=== PATIENT | female | born 1980 | race American Indian/Alaskan Native ===

== ENCOUNTER 2017-07-26 09:01 | Outpatient (CLI) | payer OTHER ==
--- NOTE | 2017-07-26 10:11 | Ultrasound Report ---
Pelvic ultrasound: Fibroid, dysmenorrhea. Transabdominal and endovaginal imaging demonstrates an anteverted uterus measuring 6.6 x 8.9 x 15.2 cm. In the central uterus there is a slightly echogenic and heterogeneous mass measuring 6.8 cm in maximum dimension. The mass is posterior to the endometrium and displacing the endometrium superiorly. The endometrium has a thickness of 11.6 and unremarkable otherwise. The left ovary measures 4.5 cm containing a partially cystic structure measuring 3.1 cm. The right ovary measures 5.9 cm with an eccentric 3.3 cm cyst and a more complex questionably solid mass measuring 3.4 cm. No free fluid identified. Impressions: 1. Large posterior uterine fibroid which is suspicious for being submucous in location. 2. Bilaterally enlarged ovaries with multiple cystic masses.
== END 2017-07-26 09:02 | disposition home or self-care (01) ==
LOC: US 09:01
PROVIDERS: ATTEND Internal Medicine
DX: D25.9 Leiomyoma of uterus, unspecified (principal); N83.201 Unspecified ovarian cyst, right side; N83.202 Unspecified ovarian cyst, left side
CPT/HCPCS: 76830; 76856

== ENCOUNTER 2017-09-16 12:05 | Outpatient (CLI) | payer OTHER ==
--- NOTE | 2017-09-16 12:40 | XRay Report ---
ROUTINE CHEST, TWO VIEWS: HISTORY: Non-specific reaction to TB skin test. The trachea, heart, mediastinal contour, lung schaeffer and bony thorax are unremarkable. No evidence for adenopathy, infiltration or pleural effusion to suggest primary or reactive tuberculosis. IMPRESSION: Unremarkable chest x-ray.
== END 2017-09-16 12:06 | disposition home or self-care (01) ==
LOC: SPVIMAG 12:05
PROVIDERS: ATTEND Internal Medicine
DX: R76.11 Nonspecific reaction to tuberculin skin test without active tuberculosis (principal)
CPT/HCPCS: 71020